=== PATIENT | female | born 1955 | race Hispanic/Latino ===

== ENCOUNTER 2017-05-19 16:50 | Emergency (ER) | payer BC ==
[2017-05-19 17:06] VITALS: BP 146/95; PULSE 74; RESP 16; TEMP 96.4; O2SAT 100
--- NOTE | 2017-05-19 17:43 | ED PDOC ---
Upper Extremity Pain/Injury Time Seen by Provider: 05/19/17 17:07 Chief Complaint (Nursing): Upper Extremity Problem/Injury Chief Complaint (Provider): Upper extremity injury History Per: Patient History/Exam Limitations: no limitations Onset/Duration Of Symptoms: Hrs (prior to arrival) Current Symptoms Are (Timing): Still Present Quality: Sharp Exacerbating Factor(s): Strenuous Use Of Affected Area, Movement Additional Complaint(s): Aaliyah Reaves is a 61 year old female, with a past medical history of reflux, anxiety, osteoporosis, and arthritis, who presents to the emergency department complaining of a constant sharp left wrist pain associated with swelling s/p injury onset prior to arrival. Patient reports a sudden onset pain after she fell over her shopping cart and fell on her outstretched left arm. Patient states pain is worst with movement of hand and wrist. She is left hand dominant. No further medical complaints. PMD: [facility] Against Medical Advice - AMA Patient Left Against Medical Advice: The patient declines admission to the hospital and wishes to leave the Emergency Department. This action is against my medical advice. This decision was made with informed refusal. The patient was told that admission to the hospital is necessary. Explanation of the reasons why were discussed. The risks of leaving were explained to the patient and include, but are not limited to, worsening of known or currently unknown conditions, permanent disability and from undiagnosed or untreated conditions. The patient has the capacity to make this informed decision and understands my explanation of the current medical problem and risks of leaving. The patient voluntarily accepts these risks and signed an AMA form documenting our conversation. The patient was given the opportunity to ask questions and reconsider. The patient was encouraged to return to the Emergency Department at any time for further care. Past Medical History Reviewed: Historical Data, Nursing Documentation, Vital Signs Vital Signs: Last Vital Signs Temp 96.4 F L 05/19/17 17:03 Pulse 74 05/19/17 17:03 Resp 16 05/19/17 17:03 BP 146/95 H 05/19/17 17:03 Pulse Ox 100 05/19/17 17:03 - Medical History PMH: Anxiety, Arthritis, Depression, Osteoporosis Denies: HIV - Surgical History Surgical History: Tonsillectomy Other surgeries: right shoulder - Family History Family History: States: Unknown Family Hx - Social History Current smoker - smoking cessation education provided: Yes (Heavy smoker >10 cigarrettes daily) Alcohol: None Drugs: Denies - Home Medications Home Medications: Ambulatory Orders Medication Instructions Recorded Acetaminophen [Tylenol Extra 1,000 mg PO Q8H PRN 05/12/15 Strength] Aspirin 325 mg PO DAILY PRN 05/12/15 Calcium/Vitamin D [Calcium + D 600 1 tab PO DAILY 05/12/15 mg-200 Iu] Cholecalciferol [Vitamin D 1000 IU] 1 tab PO DAILY 05/12/15 Cyanocobalamin [Vitamin B12] 1 tab PO DAILY 05/12/15 Cyclosporine [Restasis] 1 drop EACHEYE BID 05/12/15 Denosumab [Prolia] 60 mg SC Q6M 05/12/15 Fluoxetine HCl [Prozac] 40 mg PO QAM 05/12/15 Gabapentin [Neurontin] 300 mg PO BID 05/12/15 Ibuprofen 400 mg PO Q6H PRN 05/12/15 Lorazepam [Ativan] 0.5 mg PO BID PRN 05/12/15 Magnesium Oxide [Mag-Ox] 1 tab PO DAILY 05/12/15 Methylcellulose [Citrucel] 1 tab PO DAILY 05/12/15 Pantoprazole Sodium [Protonix] 40 mg PO DAILY 05/12/15 Polyethylene Glycol 3350 [Miralax] 17 gm PO DAILY 05/12/15 buPROPion XL [Wellbutrin XL] 300 mg PO QAM 05/12/15 Docusate Sodium [Colace] 100 mg PO BID #20 sgl 06/27/15 oxyCODONE/Acetaminophen [Percocet 1 ea PO Q6 #15 tab 06/27/15 5/325 mg Tab] - Allergies Allergies/Adverse Reactions: Allergies Allergy/AdvReac Type Severity Reaction Status Date / Time No Known Allergies Allergy Verified 05/19/17 17:26 Review of Systems ROS Statement: Except As Marked, All Systems Reviewed And Found Negative Constitutional: Negative for: Weakness, Malaise Eyes: Negative for: Vision Change (blurry vision) Cardiovascular: Negative for: Light Headedness Musculoskeletal: Positive for: Hand Pain (constant sharp left wrist pain). Negative for: Neck Pain, Back Pain Neurological: Negative for: Numbness, Headache, Dizziness Physical Exam - Reviewed Nursing Documentation Reviewed: Yes Vital Signs Reviewed: Yes - Physical Exam Appears: Positive for: Non-toxic, No Acute Distress Head Exam: Positive for: ATRAUMATIC, NORMOCEPHALIC Skin: Positive for: Warm, Dry Eye Exam: Positive for: EOMI, PERRL Neck: Positive for: Painless ROM, Trachea Midline Extremity: Positive for: Other (LEFT wrist: +deformity distal radius, FROM in hand: thumb abduction, finger opposition to thumb, finger abduction. light touch intact in hand. 2+ radial pulse. <2 sec CR) Neurologic/Psych: Positive for: Alert. Negative for: Motor/Sensory Deficits - ECG O2 Sat by Pulse Oximetry: 100 (RA) Pulse Ox Interpretation: Normal - Other Rad LEFT wrist X-Ray: Interpreted by Me (+intrarticular comminuted distal radius fracture with dorsal angulation) Medical Decision Making Medical Decision Making: Initial Impression: left wrist injury fracture vs dislocation vs contusion. Initial Plan: --Acetaminophen 975mg PO --Morphine 2 mg --Wrist, left 3 views [RAD] --reevaluation 1914 -Spoke to Dr. Russell, orthopedist, who recommended hospitalization for definitive management of wrist fracture. -DW pt findings and plan of care. Pt does not want to stay in hospital. Would like to follow up with her private orthopedist. Discussed urgent need for surgical intervention due to involvement of joint space. Pt understand risks and would like to leave anyway. Reports that she will go directly to hospital ER where her orthopedist works. -Volar splint placed by CONCHITA Urena. Neurovascularly intact after immobilization. Scribe Attestation: Documented by Martín Tadeo, acting as a scribe for Flora Dominguez MD Provider Scribe Attestation: All medical record entries made by the Scribe were at my direction and personally dictated by me. I have reviewed the chart and agree that the record accurately reflects my personal performance of the history, physical exam, medical decision making, and the department course for this patient. I have also personally directed, reviewed, and agree with the discharge instructions and disposition. Disposition - Clinical Impression Clinical Impression: Fracture of wrist Counseled Patient/Family Regarding: Studies Performed, Diagnosis - Disposition Disposition: Against Medical Advice Disposition Time: 19:00 Condition: UNKNOWN Additional Instructions: RETURN TO ER IMMEDIATELY FOR FURTHER MANAGEMENT Instructions: Splint Care (ED), Against Medical Advice (ED) Forms: [employer] (Korean)
--- NOTE | 2017-05-20 08:24 | RAD ---
PROCEDURE: Left Wrist Radiographs. HISTORY: FOOSH deformity COMPARISON: None. FINDINGS: BONES: There is a comminuted impacted complex fracture of the distal radius with dorsal angulation. Diffuse osteopenia suggests osteoporosis. JOINTS: There is subluxation of the 1st metacarpal bone in the volar direction relative to the trapezium. Advanced osteoarthritis is also seen at this joint. No additional subluxation or dislocation. SOFT TISSUES: Soft tissue edema surrounds the distal radial fracture site. OTHER FINDINGS: None. IMPRESSION: Comminuted complex fracture distal left radius without dislocation. Incidental note is note made of a probable degenerative subluxation of the 1st metacarpal bone relative to the trapezium.
== END 2017-05-19 20:00 | disposition left against medical advice (07) ==
LOC: H.ER 16:50
DX: S52.502A Unspecified fracture of the lower end of left radius, initial encounter for closed fracture (principal); W01.0XXA Fall on same level from slipping, tripping and stumbling without subsequent striking against object, initial encounter
CPT/HCPCS: 29515; 73110; 96372; 99283; J2270